=== PATIENT | female | born 1975 | race Two or more races ===

== ENCOUNTER 2017-09-04 21:58 | Emergency (ER) | payer SELFPAY ==
[~2017-09-04] VITALS: Ht 162.6 cm; Wt 113.4 kg
[2017-09-04] MEDS ORDERED: Ketorolac 30mg Inj IM ONE (22:30)
[2017-09-04] MEDS ORDERED: Lidocaine 4% Top Soln 50ml TOPIC ONE (22:30)
[2017-09-04] MEDS ORDERED: Dexamethasone 4mg/ml vial IM ONE (22:30)
[2017-09-04] MEDS ORDERED: CLINDAMYCIN HC300 MG ORAL (22:35)
[2017-09-04] MEDS ORDERED: Lidocaine 4% Amp INJ ONE (22:45)
[2017-09-04 23:00] VITALS: BP 114/75
[2017-09-04] MEDS ORDERED: IBUPROFEN600 MG ORAL (23:10)
[2017-09-04 23:15] VITALS: BP 114/75
--- NOTE | 2017-09-04 23:36 | Emergency Room Report ---
History of Present Illness General Chief Complaint: Flu Like Symptoms Source: Patient Present Illness HPI 41-year-old female presents with sore throat for 2 days. States sore throat, +mild dry cough. Pain with swallowing however has still been able to eat/drink. Patient states that the left side of her throat hurts more than the right No change in voice. No pain with extension/movement of neck. Denies fever or chills. No sick contacts. Allergies: Coded Allergies: No Known Allergies (Unverified , 09/04/17) Patient History Past Medical History: see triage record Past Surgical History: none Pertinent Family History: none Last Menstrual Period: 2 weeks ago Now: No : 3 Reviewed Nursing Documentation: PMH: Agreed, PSxH: Agreed Nursing Documentation-PMH Past Medical History: No Stated History Review of Systems All Other Systems: negative except mentioned in HPI Physical Exam Vital Signs Date Time Temp Pulse Resp B/P (MAP) Pulse Ox O2 Delivery O2 Flow Rate FiO2 09/04/17 22:01 98.9 84 18 117/75 99 Room Air 99.0 Sp02 EP Interpretation: reviewed, normal General Appearance: normal inspection, well appearing, no apparent distress, alert, GCS 15, non-toxic Head: normocephalic, atraumatic Eyes: bilateral eye normal inspection, bilateral eye PERRL, bilateral eye EOMI ENT: other - Tonsillar exudate, left-sided peritonsillar abscess, uvula is midline, swollen tonsils Neck: normal inspection, full range of motion, supple Respiratory: normal inspection, lungs clear, normal breath sounds, no respiratory distress, no retraction, no wheezing, speaking full sentences, chest symmetrical Cardiovascular #1: normal inspection, regular rate, rhythm, no edema, normal capillary refill Cardiovascular #2: 2+ radial (R), 2+ radial (L) Gastrointestinal: normal inspection, non tender, soft, non-distended, no guarding Musculoskeletal: normal inspection, back normal, normal range of motion, non- tender Neurologic: normal inspection, alert, oriented x3, responsive, motor strength/ tone normal, sensory intact, normal gait, speech normal Psychiatric: normal inspection, judgement/insight normal, memory normal Skin: normal inspection, normal color, no rash, warm/dry, well hydrated, normal turgor Procedures Additional Procedure Procedure Narrative Procedure: Peritonsillar abscess incision and drainage Nebulized for percent lidocaine used for local anesthesia An 18-gauge needle was used to drain abscess, however after 4 attempts no purulent drainage Patient tolerated procedure well No complications Medical Decision Making Diagnostic Impression: Primary Impression: Peritonsillar abscess ER Course 41-year-old female with sore throat 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 infectious mononucleosis vs. bacterial pharyngitis Plan: Pain medication, Decadron, incision and drainage ER course: A peritonsillar abscess drainage was attempted, however no success, no purulent drainage Patient was given pain medicine and Decadron She appears nontoxic Disposition: Patient will be discharged to home with antibiotics Patient will follow up with an ENT doctor in 1 week. Strict return precautions discussed with patient such as worsening throat pain/swelling, dysphagia, high fever or chills, shortness of breath, abdominal pain, which may indicate severe illness. Patient verbalized understanding and agreed with plan. Please note that this Emergency Department Report was dictated using [employer]book[employer] engine optimization manager technology software, occasionally this can lead to erroneous entry secondary to interpretation by the dictation equipment. Last Vital Signs Date Time Temp Pulse Resp B/P (MAP) Pulse Ox O2 Delivery O2 Flow Rate FiO2 09/04/17 22:42 98.9 09/04/17 22:01 84 18 117/75 99 Room Air Disposition: HOME, SELF-CARE Condition: Improved Scripts Ibuprofen* (MOTRIN*) 600 Mg Tablet 600 MG ORAL Q8H Y for For Pain, #30 TAB 0 Refills Prov: Dacia Rubio M.D. 09/04/17 Clindamycin Hcl (CLINDAMYCIN HCL) 300 Mg Capsule 300 MG ORAL THREE TIMES A DAY for 7 Days, #21 CAP Prov: Dacia Rubio M.D. 09/04/17 Patient Instructions: Peritonsillar Abscess, [id number] Additional Instructions: PLEASE SEE AN ENT DOCTOR IN 1 WEEK WITHOUT FAIL Dacia Rubio M.D. Sep 04, 2017 23:36
== END 2017-09-04 23:15 | disposition home or self-care (01) ==
LOC: EMR 22:17
DX: J36 Peritonsillar abscess (principal)
CPT/HCPCS: 42700; 96372; 99284; J1100; J1885